=== PATIENT | male | born 1960 | race Caucasian/White ===

== ENCOUNTER 2019-08-29 11:00 | Emergency (ER) | payer BC, SELFPAY ==
[2019-08-29] MEDS ORDERED: ONDANSETRON INJ 4 MG/2 ML VIAL IV ONE (11:44)
[2019-08-29] MEDS ORDERED: SODIUM CHLORIDE 0.9% 1000ML 1,000 ML IVS ONE (11:44)
--- NOTE | 2019-08-29 11:49 | ED.PDOC ---
History of Present Illness - General Chief Complaint: General Stated Complaint: flu like sx Time Seen by Provider: 08/29/19 11:42 Additional Information: Patient with chief complaint of vomiting and diarrhea for the past 4-5 days. Patient indicates his symptoms are gradually improving but he still feels a bit weak. Patient denies hematemesis, melena or hematochezia. Patient indicates that he has a touch of bronchitis with chest congestion and this is the source of some mild chest discomfort when he coughs but patient denies intrinsic chest pain. Patient indicates that he smoked for over 39 years but is no longer a smoker, he denies history of COPD. Patient denies abdominal pain, he indicates that he only has nausea vomiting and diarrhea. He does indicate that he has had subjective chills but no fever. He has no other complaints today. Patient indicates his biggest concern is receiving a work note for the days that he missed off of work this week and for tomorrow as well. - History of Present Illness Allergies/Adverse Reactions: Allergies NO KNOWN ALLERGY Allergy (Verified 08/29/19 11:54) Home Medications: Ambulatory Orders Loperamide HCl [Imodium A-D] 2 mg PO TID PRN #30 tab 08/29/19 Metformin HCl [Fortamet] 500 mg PO DAILY #30 tab 08/29/19 Metoclopramide HCl [Reglan] 10 mg PO Q6H PRN #12 tab 08/29/19 Review of Systems - Review of Systems Constitutional: States: chills, weakness EENTM: States: no symptoms reported Respiratory: States: cough. Denies: short of breath, wheezing Cardiology: States: see HPI. Denies: chest pain, palpitations Gastrointestinal/Abdominal: States: see HPI. Denies: abdominal pain Musculoskeletal: States: no symptoms reported. Denies: muscle pain Skin: States: no symptoms reported. Denies: rash Neurological: States: no symptoms reported All other Systems: Reviewed and Negative Past Medical History (General) - Patient Medical History Hx Stroke: No Hx Congestive Heart Failure: No Hx Diabetes: No Surgical History: no surgical history - Vaccination History Hx Influenza Vaccination: No Hx Pneumococcal Vaccination: No - Social History Hx Tobacco Use: Yes Family Medical History - Family History Father Family History: Unknown Living Status: Unknown Physical Exam - Physical Exam General Appearance: Alert, Unkempt, Other Ears, Nose, Throat: normal ENT inspection Neck: non-tender, full range of motion, supple Respiratory: normal breath sounds, no respiratory distress, no accessory muscle use, other - occasional dry cough Cardiovascular/Chest: regular rate, rhythm, no edema, no gallop Gastrointestinal/Abdominal: normal bowel sounds, non tender, soft, no organomegaly Rectal Exam: normal exam Back Exam: normal inspection, no CVA tenderness Progress - Progress Progress: 08/29/19 11:53 differential diagnoses includes but is not limited to gastroenteritis, electrolyte disorder, pneumonia, COPD 08/29/19 13:00 Patient feeling much better at this time following IV fluids. Patient's labs are unremarkable and shows no evidence of infection, but patient's blood sugar is elevated at 295 and patient tells me he has no history of diabetes. The patient does not see a physician and I have discussed with the patient in detail the need to maintain a close blood sugar to prevent medical complications, and I will discharge with Metformin and give patient a referral to a PCP. Patient's chest x-ray is clear. Vital signs stable, patient NAD and looks clinically improved and I believe is safe for discharge with outpatient follow-up. Follow- up instructions, discharge instructions and return to ED precautions discussed with patient. Patient voices understanding and willingness to comply with instructions. All laboratory and radiographic results have been discussed with the patient, and all questions answered. Patient is happy with plan. 08/29/19 13:16 - Results/Orders Results/Orders: 08/29/19 11:42 Chest,1 View [RAD] Stat 08/29/19 11:45 EKG .ONCE Laboratory Results - last 24 hr 08/29/19 08/29/19 11:52 11:52 WBC 7.4 RBC 4.49 L Hgb 13.4 L Hct 38.8 L MCV 86.5 MCH 29.8 MCHC 34.4 RDW 12.4 Plt Count 189 MPV 7.3 L Absolute Neuts (auto) 5.40 Absolute Lymphs (auto) 1.10 Absolute Monos (auto) 0.90 H Absolute Eos (auto) 0.10 Absolute Basos (auto) 0.00 Neutrophils % 73.0 Lymphocytes % 14.2 L Monocytes % 11.4 H Eosinophils % 1.0 Basophils % 0.4 Sodium 131 L Potassium 3.4 L Chloride 91 L Carbon Dioxide 28 Anion Gap 15.4 BUN 9 Creatinine 0.91 BUN/Creatinine Ratio 9.9 L Random Glucose 295 H Serum Osmolality 272.3 L Calcium 8.7 Total Bilirubin 0.6 AST 69 H ALT 82 H Alkaline Phosphatase 139 H Serum Total Protein 7.5 Albumin 3.4 Globulin 4.1 H Albumin/Globulin Ratio 0.8 L EKG read: NSR, rate 87 nl axis, nl QRS, nl ST segments, nl T waves. Negative STEMI. EKG read by Pineda Sheets MD. XR Chest one view Indication: Chest pain. Comparisons: None Findings: The lungs are clear. The heart size is within normal limits. No pneumothorax is identified. No effusions are seen. The cortical margins of the ribs appear intact. Impression: No acute cardiopulmonary findings are identified. Departure - Departure Clinical Impression: New onset type 2 diabetes mellitus, Vomiting and diarrhea, Volume depletion, gastrointestinal loss Time of Disposition: 13:05 Disposition: Discharge to Home or Self Care Condition: Fair Departure Forms: ED Discharge - Pt. Copy, Patient Portal Self Enrollment Instructions: Hyperglycemia, Adult, Diabetes Diet , Hyperglycemia, Adult (DC) Referrals: SARIAH MENDEZ [Primary Care Provider] - 1-5 Days ROBERT BRUNER MD G REF [Referring] - 1-5 Days Prescriptions: Loperamide HCl [Imodium A-D] 2 mg PO TID PRN #30 tab PRN Reason: Diarrhea Metformin HCl [Fortamet] 500 mg PO DAILY #30 tab Metoclopramide HCl [Reglan] 10 mg PO Q6H PRN #12 tab PRN Reason: Nausea/Vomiting Home Medications: Ambulatory Orders Loperamide HCl [Imodium A-D] 2 mg PO TID PRN #30 tab 08/29/19 Metformin HCl [Fortamet] 500 mg PO DAILY #30 tab 08/29/19 Metoclopramide HCl [Reglan] 10 mg PO Q6H PRN #12 tab 08/29/19
[2019-08-29] MEDS: DIPHENOXYLATE HCL/ATROPINE 2.5 MG TAB PO ONE ×2 (12:06→12:07)
[2019-08-29 13:11] VITALS: O2SAT 93
[2019-08-29 13:27] VITALS: BP 148/76; TEMP 100.2
== END 2019-08-29 13:27 | disposition home or self-care (01) ==
LOC: ER 11:00
DX: R11.2 Nausea with vomiting, unspecified (principal); R19.7 Diarrhea, unspecified; E11.9 Type 2 diabetes mellitus without complications; E86.9 Volume depletion, unspecified; R05 Cough; Z87.891 Personal history of nicotine dependence
CPT/HCPCS: 71045; 80053; 85025; 93005; J2405; J7030

== ENCOUNTER → 2019-09-19 | Outpatient (CLI) | payer OTHER, SELFPAY ==
--- NOTE | 2019-09-20 15:05 | CT ---
Procedure: CT LUNG SCREENING Exam Date: 09/19/2019. Ordering Provider: Rikki Ashford Clinical Indication: PERSONAL HISTORY OF TOBACCO USE . Smoking cessation x 6 years. 39 pack-years. This patient meets eligibility criteria for low-dose CT lung cancer screening. Comparison: Chest radiograph August 29 Technique: Using a multislice scanner, sequential helical axial imaging was obtained in the thorax, 2.5 mm thickness, 2.5 mm separation, from the level of the thoracic inlet through the lung bases without IV contrast. A low dose protocol was utilized for BMI less than 30: BMI: 29. CTDI: 1.76 mGy. 120. kVp. 45 mA. DLP 60.97 mGy-cm. 2D sagittal and coronal reconstructed images, 6.0 mm thickness, were obtained. This exam was performed according to our departmental dose optimization program which includes use of automated exposure control, adjustment of the mA and/or kV according to patient size and/or use of iterative reconstruction technique. Nodule measurements under 10 mm are given as mean value of 3 axes diameters. FINDINGS: Lungs and large airways: 6.3 mm solid subpleural nodule versus pleural thickening in the medial apex of the right upper lobe on axial image 2/15. Semisolid nodule versus pleural thickening measuring 4.8 cm subpleural right apex bilaterally on axial image /. On the same image is a solid nodule versus pleural thickening measuring 5.4 mm abutting the lateral left apex. Solid subpleural nodule versus pleural thickening 5.2 mm abutting the lateral pleura of the left upper lobe on axial image 2/25. 5.8 mm groundglass nodule medial right apex on axial image 2/16. Solid nodule versus pleural thickening subpleural location left upper lobe anterolateral measuring 6.8 mm on axial image 2/. Nearby subpleural solid nodule with pleural thickening slightly inferior measuring 4.8 mm on axial image 2/32. Slightly more inferior subpleural groundglass nodule versus pleural thickening/scarring measuring 6.4 mm on axial image 2/36. Another nearby solid nodule is pleural thickening lateral left upper lobe subpleural measuring 7.4 mm on axial image 2/33. 4 mm nodule associated with a segmental fissure in the anterior inferior lingula on axial images 2/48. Focal perifissural thickening in the superior left major fissure 5 mm, 7 mm, and 4 mm also associated with pleural thickening near the apex. 3 mm subpleural solid nodule lateral left lower lobe axial image 2/ focal perifissural thickening on the right major fissure less than 5 mm diameter. Subpleural solid nodule versus focal pleural thickening 2 mm posterolateral right lower lobe on axial image 2/81. Similar appearing nodule on image 2/72. Pleural parenchymal scarring in the inferior lingula and left lower lobe. Pleura and space: Significant amount of bilateral apical pleural thickening more on the left, and also anterior lateral anterior segment left upper lobe. Mediastinum and nicole: evaluation limited by low dose technique and lack of IV contrast. Small nodes with no dominant soft tissue masses. Heart and great vessels: Minimal pericardial thickening. Atherosclerotic calcification in the aortic arch Chest wall, lower neck, axillae: Evaluation also limited by same factors as described above. Bilateral axillary lymph nodes 1 x 1.5 right axilla and 1.4 x 0.9 cm left axilla. Upper abdomen: Evaluation limited by low-dose technique. No free air or free fluid in the included peritoneal cavity. Adrenal glands normal size and density. Gallbladder visualized. Osseous structures: Evaluation limited by low dose MIP technique. Spondylosis midthoracic spine. Arthrosis sternoclavicular joints and first rib costochondral joints. IMPRESSION: Bilateral apical pleural thickening more on the left and also extending down into the left upper lobe, and or multiple subpleural nodules, solid, semisolid, and groundglass, bilaterally. Largest nodule measures 7.4 mm diameter.. [facility] Best Practice Recommendations: please see below for Lung RADS category and FOLLOW-UP.* *Lung RADS category CATEGORY 3S - Probably benign (1-2% malignancy probability), short term follow-up suggested. NODULES: Solid nodule(s) 6mm (113.1 mm3) to less than 8mm (268.1 mm3) at baseline, or new 4mm (33.5 mm3) to under 6mm (113.1 mm3) solid nodule. Part solid nodule total diameter >= 6mm (113.1 mm3) with solid component less than 6mm, or new less than 6mm total diameter nodule] OR new <6 mm (113.1 mm3) total diameter. GGN >= 30 mm (>=41506 mm3) on baseline CT or new. FOLLOW-UP: Please return for a Low Dose Chest CT in 6 months for re-evaluation. Lung RADS Modifier S - Clinically Significant or Potentially Clinically Significant Findings (non lung cancer). Pericardial thickening but no definite pericardial effusion. Electronically signed by: Tomas Garvey MD 09/20/2019 3:04 PM [facility]
== END ==
LOC: CT 09:56
PROVIDERS: ATTEND Family Medicine
DX: Z87.891 Personal history of nicotine dependence (principal); R91.8 Other nonspecific abnormal finding of lung field; R91.1 Solitary pulmonary nodule

== ENCOUNTER → 2019-10-21 | Outpatient (CLI) | payer SELFPAY | LOC: YCFC.O 12:50 | PROVIDERS: ATTEND Family Medicine | DX: E11.65 Type 2 diabetes mellitus with hyperglycemia (principal); D64.9 Anemia, unspecified; R94.5 Abnormal results of liver function studies ==

== ENCOUNTER → 2020-01-20 | Outpatient (CLI) | payer OTHER | LOC: YCFC.O 12:49 | PROVIDERS: ATTEND Family Medicine | DX: E11.9 Type 2 diabetes mellitus without complications (principal) ==

== ENCOUNTER → 2020-04-08 | Outpatient (CLI) | payer OTHER ==
--- NOTE | 2020-04-08 11:14 | CT ---
EXAM DESCRIPTION: Chest w/o Contrast : Computed Tomography. Ordering Provider: Dr. Rikki Ashford, Dr. Nj Ortiz. Clinical Indication: Follow-up lung nodule from abnormal screening 6 years smoking cessation. 39 pack-years. This patient meets eligibility criteria for low-dose CT lung cancer screening. Comparison: Low-dose CT lung cancer screening examination August 2019. Technique: Using a multislice scanner, sequential helical axial imaging was obtained in the thorax, 2.5 mm thickness, 2.5 mm separation, from the level of the thoracic inlet through the lung bases without IV contrast. A low dose protocol was utilized for BMI less than 30: BMI: 29. CTDI: 1.76 mGy. 120. kVp. 45 mA. DLP 68 mGy-cm. 2D sagittal and coronal reconstructed images, 6.0 mm thickness, were obtained. This exam was performed according to our departmental dose optimization program which includes use of automated exposure control, adjustment of the mA and/or kV according to patient size and/or use of iterative reconstruction technique. Nodule measurements under 10 mm are given as mean value of 3 axes diameters. FINDINGS: Lungs and large airways: Multiple focal nodular-like densities abutting the pleura and associated with pleural thickening are again visualized predominantly in the apices and bilateral upper lobes left more than right. These are stable since the prior study. No new nodules. No abnormal nodules and no mass. No focal or new infiltrates. Pleural spaces: As previously described, diffuse and focal pleural thickening more prevalent in the upper lung walsh and more on the left than right. Also associated with the superior lateral pleural insertion of the left major fissure. Stable since the prior study. Mediastinum and Elizabeth: Evaluation limited due to lack of IV contrast able small nodes and no dominant soft tissue mass. Great vessels and Heart: Evaluation limited due to lack of IV contrast. Minimal pericardial thickening has not increased. Atherosclerotic calcification aortic arch with minimal calcification proximal coronary arteries near the aortic root stable. Soft tissues of neck base, axillae, and chest wall: Evaluation limited due to lack of IV contrast. Bilateral stable axillary lymph nodes. Upper abdomen: No free air or free fluid. Normal size and density of the adrenal glands and spleen. Gallbladder visualized. Osseous structures: Bilateral arthrosis and minimal mid thoracic dextroscoliosis. Minimal sternoclavicular and glenohumeral arthrosis. IMPRESSION: Bilateral multiple focal pleural thickening and diffuse thickening more in the upper lung walsh and more left than right. Stable since the prior study. No new nodules, no abnormal nodules, and no mass.. [facility] Best Practice Recommendations: please see below for Lung RADS category and FOLLOW-UP.* *Lung RADS category CATEGORY 2- Nodules with a very low likelihood (less than 1%) of becoming a clinically active cancer due to size or lack of growth. Nodules: Perifissural nodule(s) < 10 mm. (526mm3). Solid or part solid nodule(s) less than 6mm (113.1 mm3), new solid nodule less than 4mm (33.5 mm3). Ground glass nodule(s) less than 30mm (21041.2 mm3) or unchanged or slow growing ground glass nodule 30mm or greater. Cat 3 or 4 nodule unchanged for 3 or more months. FOLLOW-UP: Continue annual screening with a Low Dose Chest CT in 12 months for re-evaluation. Electronically signed by: Tomas Garvey MD 04/08/2020 11:12 AM CDT
== END ==
LOC: CT 09:32
PROVIDERS: ATTEND Family Medicine
DX: R91.1 Solitary pulmonary nodule (principal); J98.4 Other disorders of lung; Z87.891 Personal history of nicotine dependence